=== PATIENT | female | born 1950 | race Two or more races ===

== ENCOUNTER 2017-11-20 15:07 | Emergency (ER) | END 2017-11-21 10:10 | disposition home or self-care (01) ==

== ENCOUNTER 2018-10-10 15:29 | Emergency (ER) | payer MEDICARE, OTHER ==
[~2018-10-10] VITALS: Ht 162.6 cm; Wt 75.9 kg
[~2018-10-10 15:29] MED LIST: ARIP15TA3 PO; ATOR-2 PO; CHOL200056 PO; DIVA-48 PO; GLIM4TAB PO; HYDR-3980 PO; LISI2.5T59 PO; SITA100T11 PO; SUMA50TA2 PO
[2018-10-10 15:41] VITALS: Ht 162.6 cm; Wt 75.9 kg
[2018-10-10] MEDS ORDERED: SOD CHLORIDE 0.9% 1,000 ML IV STA (15:58)
[2018-10-10] MEDS ORDERED: KETOROLAC 30 MG INJ IV STA (16:47)
[2018-10-10] MEDS ORDERED: DIPHENHYDRAMINE 50 MG INJ IV STA (16:47)
[2018-10-10] MEDS ORDERED: METOCLOPRAMIDE 10 MG INJ IV STA (16:47)
[2018-10-10] MEDS ORDERED: LISI2.5T59 PO (16:53)
[2018-10-10] MEDS ORDERED: SITA100T11 PO (16:53)
[2018-10-10] MEDS ORDERED: PRAZ1CAP3 PO (16:54)
[2018-10-10] MEDS ORDERED: AMOX500C2 PO (16:54)
[2018-10-10] MEDS ORDERED: ATOR-2 PO (16:55)
[2018-10-10] MEDS ORDERED: GLIM4TAB PO (16:55)
[2018-10-10] MEDS ORDERED: ARIP20TA5 PO (16:56)
[2018-10-10] MEDS ORDERED: DAPA10TA PO (16:56)
[2018-10-10] MEDS ORDERED: ZOLP5TAB7 PO (16:56)
[2018-10-10] MEDS ORDERED: CHOL200056 PO (16:57)
[2018-10-10] MEDS ORDERED: RIZA10TA21 PO (16:58)
[2018-10-10] MEDS ORDERED: INSULIN LISPRO 100 UNIT/ML VIAL SC STA (17:06)
[2018-10-10] MEDS ORDERED: LACTATED RINGER'S 1,000 ML IV STA (17:06)
[2018-10-10] MEDS ORDERED: ALBUTEROL 0.083% (NEB) 2.5 MG/3 ML AMP NEB STA (17:11)
[2018-10-10] MEDS ORDERED: IPRATROPIUM (NEB) 0.5 MG/2.5 ML AMP NEB STA (17:11)
[2018-10-10 19:22] VITALS: BP 113/68; PULSE 100; RESP 18
--- NOTE | 2018-10-11 00:29 | ERD ---
ER Documentation Chief Complaint Chief Complaint Sent by PCP for hyperglycemia yesterday, migraine 12/20 pain HPI 68-year-old female with a history of hypertension, migraines, and diabetes sent by her primary care doctor for hyperglycemia that was noted on labs done yesterday. Patient states that her diabetes medications were recently changed. Currently she is complaining of a throbbing right-sided headache that is consistent with her history of migraines. She is also complaining of increased coughing due to her chronic bronchitis. She has mild shortness of breath but denies any chest pain, fever, chills, hemoptysis. She is compliant with all of her medications. ROS All systems reviewed and are negative except as per history of present illness. Medications Home Meds Reported Medications Rizatriptan Benzoate (Rizatriptan Benzoate) 10 Mg Tablet, 10 MG PO NEEDED PRN for MIGRAINE, TAB may repeat after 2 hours, MAX 30 mg/24 hour 10/10/18 Cholecalciferol (Vitamin D3) (Vitamin D-3) 2,000 Unit Tablet, 2000 UNIT PO DAILY, TAB 10/10/18 Zolpidem Tartrate* (Zolpidem Tartrate*) 5 Mg Tablet, 5 MG PO QHS PRN for INSOMNIA, #30 TAB 10/10/18 Dapagliflozin Propanediol (Farxiga) 10 Mg Tablet, 10 MG PO DAILY, #30 TAB 10/10/18 Aripiprazole* (Abilify*) 20 Mg Tablet, 20 MG PO DAILY, #30 TAB 10/10/18 Atorvastatin* (Atorvastatin*) 80 Mg Tablet, 80 MG PO QHS, #30 TAB 10/10/18 Glimepiride* (Glimepiride*) 4 Mg Tablet, 4 MG PO WITH BREAKFAST DINNE, TAB 10/10/18 Prazosin Hcl* (Prazosin Hcl*) 1 Mg Capsule, 1 MG PO BID, CAP 10/10/18 Amoxicillin* (Amoxicillin*) 500 Mg Cap, 500 MG PO TID, #20 CAP FOR 10 DAYS,START DATE 10/09/18 10/10/18 Sitagliptin* (Januvia*) 100 Mg Tablet, 100 MG PO DAILY, #30 TAB 10/10/18 Lisinopril* (Lisinopril*) 2.5 Mg Tablet, 2.5 MG PO DAILY, #30 TAB 10/10/18 Discontinued Reported Medications Sumatriptan Succinate* (Imitrex*) 50 Mg Tablet, 50 MG PO BID PRN for MIGRAINE HEADACHE, TAB May repeat after 2 hours if needed; MAX 200 mg/24 hours 11/20/17 Aripiprazole* (Abilify*) 15 Mg Tablet, 15 MG PO QHS, #30 TAB 11/20/17 Atorvastatin* (Atorvastatin*) 80 Mg Tablet, 80 MG PO QHS, #30 TAB 11/20/17 Sitagliptin* (Januvia*) 100 Mg Tablet, 100 MG PO DAILY, #30 TAB 11/20/17 Divalproex Sodium* (Depakote*) 500 Mg Tablet.dr, 1500 MG PO QHS, #120 TAB 11/20/17 Cholecalciferol (Vitamin D3) (Vitamin D-3) 2,000 Unit Tablet, 2000 UNIT PO DAILY, TAB 11/20/17 Lisinopril* (Lisinopril*) 2.5 Mg Tablet, 2.5 MG PO DAILY, #30 TAB 11/20/17 Glimepiride* (Glimepiride*) 4 Mg Tablet, 4 MG PO WITH BREAKFAST DINNE, TAB 11/20/17 Discontinued Scripts Hydrocodone/Acetaminophen ([place] 10-325 Tablet) 1 Each Tablet, 1 TAB PO Q6H PRN for PAIN, #20 TAB Prov:MAVIS POSADAS MD 11/20/17 Allergies Allergies: Coded Allergies: No Known Allergy (Unverified , 10/10/18) PMhx/Soc History of Surgery: Yes (HYSTERECTOMY ) Anesthesia Reaction: No Hx Neurological Disorder: No Hx Respiratory Disorders: Yes (ASTHMA ) Hx Cardiac Disorders: Yes (HTN,HYPERLIPIDEMIA ) Hx Psychiatric Problems: Yes (BIPOLAR,DEPRESSION) Hx Miscellaneous Medical Probl: Yes (DM ) Hx Alcohol Use: Yes Hx Substance Use: Yes (Quit 8 years ago) Hx Tobacco Use: Yes (Quit 3 years ago) Smoking Status: Former smoker FmHx Family History: No coronary disease Physical Exam Vitals Vital Signs Date Temp Pulse Resp B/P (MAP) Pulse Ox O2 O2 Flow FiO2 Time Delivery Rate 10/10/18 98.7 100 18 113/68 96 Room Air 19:22 (83) 10/10/18 98.7 100 18 108/43 98 Room Air 18:20 (64) 10/10/18 82 20 96 21 17:19 10/10/18 98.7 95 18 123/67 95 Room Air 16:10 (85) 10/10/18 98.7 127 18 123/67 95 15:41 (85) Physical Exam Const: No acute distress Head: Atraumatic Eyes: Normal Conjunctiva, PERRLA, eomi ENT: Normal External Ears, Nose and Mouth. Neck: Full range of motion. No meningismus. Resp: Good air movement bilaterally, expiratory wheezing noted. No rales or rhonchi Cardio: Regular rate and rhythm, no murmurs Abd: Soft, non tender, non distended. Normal bowel sounds Skin: No petechiae or rashes Back: No midline or flank tenderness Ext: No cyanosis, or edema Neur: Awake and alert, normal speech, no facial asymmetry, moving all extremities, Psych: Normal Mood and Affect Result Diagram: 10/10/18 1629 10/10/18 1629 Results 24 hrs Laboratory Tests Test 10/10/18 15:40 10/10/18 16:29 10/10/18 17:26 Bedside Glucose 441 mg/dL 423 mg/dL White Blood Count 10.7 10^3/ul Red Blood Count 4.65 10^6/ul Hemoglobin 13.6 g/dl Hematocrit 41.1 % Mean Corpuscular Volume 88.4 fl Mean Corpuscular Hemoglobin 29.2 pg Mean Corpuscular 33.1 g/dl Hemoglobin Concent Red Cell Distribution Width 11.9 % Platelet Count 238 10^3/UL Mean Platelet Volume 10.2 fl Immature Granulocytes % 0.500 % Neutrophils % 66.5 % Lymphocytes % 23.7 % Monocytes % 7.9 % Eosinophils % 0.9 % Basophils % 0.5 % Nucleated Red Blood Cells % 0.0 /100WBC Immature Granulocytes # 0.050 10^3/ul Neutrophils # 7.1 10^3/ul Lymphocytes # 2.5 10^3/ul Monocytes # 0.8 10^3/ul Eosinophils # 0.1 10^3/ul Basophils # 0.1 10^3/ul Nucleated Red Blood Cells # 0.0 10^3/ul Urine Color STRAW Urine Clarity CLEAR Urine pH 5.0 Urine Specific [place] 1.029 Urine Ketones NEGATIVE mg/dL Urine Nitrite NEGATIVE mg/dL Urine Bilirubin NEGATIVE mg/dL Urine Urobilinogen NEGATIVE mg/dL Urine Leukocyte Esterase NEGATIVE Becky/ul Urine Hemoglobin NEGATIVE mg/dL Urine Glucose 3+ mg/dL Urine Total Protein NEGATIVE mg/dl Sodium Level 135 mmol/L Potassium Level 4.8 mmol/L Chloride Level 100 mmol/L Carbon Dioxide Level 22 mmol/L Anion Gap 13 Blood Urea Nitrogen 27 mg/dl Creatinine 1.01 mg/dl Est Glomerular Filtrat 55 mL/min Rate mL/min Glucose Level 465 mg/dl Calcium Level 10.2 mg/dl Current Medications Medications Dose Sig/Natasha Start Time Status Last (Trade) Ordered Route PRN Stop Time Admin Dose Reason Admin Sodium 1,000 ml @ Q1H STAT 10/10/18 DC 10/10/18 Chloride 1,000 mls/hr IV 15:58 17:01 10/10/18 16:57 10 mg ONCE STAT 10/10/18 DC 10/10/18 Metoclopramid IV 16:47 17:01 e HCl 10/10/18 16:49 (Reglan) Ketorolac 30 mg ONCE STAT 10/10/18 DC 10/10/18 Tromethamine IV 16:47 17:01 (Toradol) 10/10/18 16:49 25 mg ONCE STAT 10/10/18 DC 10/10/18 Diphenhydrami IV 16:47 17:01 ne HCl 10/10/18 16:49 (Benadryl) Lactated 1,000 ml @ Q1H STAT 10/10/18 DC 10/10/18 Ringer's 1,000 mls/hr IV 17:06 17:27 10/10/18 18:05 Insulin 10 unit ONCE STAT 10/10/18 DC 10/10/18 Human SC 17:06 17:30 Lispro 10/10/18 17:08 (Humalog) Albuterol 5 mg ONCE STAT 10/10/18 DC 10/10/18 (Proventil NEB 17:11 17:18 0.083% (Neb)) 10/10/18 17:12 Ipratropium 0.5 mg ONCE STAT 10/10/18 DC 10/10/18 [place] NEB 17:11 17:18 (Atrovent 10/10/18 17:12 0.02% (Neb)) Procedures/MDM EMERGENT LABS AND DIAGNOSTIC STUDIES: Lab Results above were reviewed and interpreted by me. CBC: no anemia or evidence of infection BMP: Hyperglycemic. no e/o clinically significant electrolyte abnormality severe acidosis, alkalosis, renal failure, diabetic ketoacidosis UA shows no evidence of ketones or infection Initial Nursing notes reviewed. Previous Medical Records requested via the Electronic Health Record. EMERGENCY DEPARTMENT COURSE / MEDICAL DECISION MAKING: Patient is presenting with hyperglycemia and complaints of migraine headache. Vitals are unremarkable. No evidence of DKA on work-up. Patient given IV hydration and insulin. Follow-up within 2 to 3 days recommended with PCP to adjust diabetes medications. Headache was treated with medications with subsequent resolution of headache. At this time I do not suspect intracranial hemorrhage. Patient is stable upon discharge Patient's blood pressure was elevated (>120/80) but appears stable without evidence of hypertensive emergency or urgency. The patient was counseled about the risks of hypertension and urged to pursue outpatient monitoring and therapy within a week with their primary care physician. Departure Diagnosis: Primary Impression: Hyperglycemia Additional Impressions: Migraine Migraine type: unspecified Status migrainosus presence: without status migrainosus Intractability: not intractable Qualified Codes: G43.909 - Migraine, unspecified, not intractable, without status migrainosus Bronchitis Condition: Stable Patient Instructions: Hyperglycemia (High Blood Sugar) RAJESH GALVAN MD Oct 11, 2018 00:29
== END 2018-10-10 19:24 | disposition home or self-care (01) ==
LOC: E/R 15:29
DX: E11.65 Type 2 diabetes mellitus with hyperglycemia (principal); I10 Essential (primary) hypertension; G43.909 Migraine, unspecified, not intractable, without status migrainosus; J40 Bronchitis, not specified as acute or chronic; Z79.84 Long term (current) use of oral hypoglycemic drugs; Z87.891 Personal history of nicotine dependence
CPT/HCPCS: 80048; 81003; 82962; 85025; 94664; J1200; J1815; J1885; J2765; J7030; J7120; 36415; 96372; 96374; 96375

== ENCOUNTER → 2018-11-03 | Outpatient (CLI) | payer MEDICARE, OTHER ==
[~2018-11-03] MED LIST changes: +AMOX500C2 PO; -ARIP15TA3 PO; +ARIP20TA5 PO; +DAPA10TA PO; -DIVA-48 PO; -HYDR-3980 PO; +PRAZ1CAP3 PO; +RIZA10TA21 PO; -SUMA50TA2 PO; +ZOLP5TAB7 PO
== END | disposition home or self-care (01) ==
LOC: C/S 14:54
PROVIDERS: ATTEND Internal Medicine
DX: I25.84 Coronary atherosclerosis due to calcified coronary lesion (principal); R05 Cough
CPT/HCPCS: 71250; 73700